=== PATIENT | female | born 1995 | race Caucasian/White ===

== ENCOUNTER 2021-03-26 21:03 | Emergency (ER) | payer MEDICAID, SELFPAY ==
--- NOTE | ~2021-03-26 | XR_ITS ---
EXAMINATION: XR RIBS, LEFT CLINICAL INFORMATION: Pain. COMPARISON: None. TECHNIQUE: 3 views of the left ribs were obtained. FINDINGS: Lungs are clear. No consolidation, pneumothorax, or pleural effusion. The cardiomediastinal silhouette and pulmonary vasculature are normal. Osseous structures are unremarkable. Ribs are intact. No fractures are identified. XR/XR ribs LT min 3V w CXR1V IMPRESSION: Unremarkable examination.
--- NOTE | ~2021-03-26 | CT_ITS ---
EXAMINATION: CT ANGIOGRAM OF THE CHEST WITH AND WITHOUT CONTRAST (CT PULMONARY ANGIOGRAM FOR PE) CT ABDOMEN AND PELVIS WITH CONTRAST CLINICAL INFORMATION: Pleuritic chest pain. L CVAT/LUQ abominal pain COMPARISON: Radiographs from 03/26/2021. TECHNIQUE: Prior to contrast administration, noncontrast localization images were obtained. Subsequently, multidetector volumetric imaging was performed from the thoracic inlet to the pubic symphysis following the administration of 85 mL Omnipaque 350 intravenous contrast. This was followed by multidetector acquisition of the abdomen and pelvis. No contrast reaction reported Sagittal, coronal, and MIP oblique sagittal reformatted images were obtained on the CT workstation, uploaded to PACS, and reviewed. This CT examination was performed using dose optimization techniques as appropriate, variously including the following: *Automated exposure control *Adjustment of mA and/or kV according to patient size (this includes techniques or standardized protocols for targeted exams where dose is matched to indication/reason for exam; i.e. extremities or head) *Use of iterative reconstruction technique Total exam dose-length product 730 mGy-cm FINDINGS: QUALITY OF STUDY/CONTRAST BOLUS: Satisfactory. PULMONARY ARTERIES: No central or segmental pulmonary emboli. THORACIC AORTA: No aneurysm or dissection. LUNG: No focal consolidation, nodules or masses. The central airways are patent. PLEURA: No pleural effusion or pneumothorax. MEDIASTINUM: Normal heart size. No pericardial effusion. No hilar or mediastinal lymphadenopathy. Residual thymic tissue noted in the superior mediastinum. No evidence of septal bowing or right heart strain. CHEST WALL/AXILLA: No axillary or internal mammary lymphadenopathy. LIVER, GALLBLADDER, AND BILIARY TREE: The liver is normal in size, shape, and attenuation. No focal hepatic lesion or biliary ductal dilatation is present. The gallbladder is unremarkable with no evidence of radiopaque gallstones, gallbladder wall thickening, or obvious pericholecystic inflammatory changes. PANCREAS: Unremarkable. SPLEEN: Unremarkable. ADRENAL GLANDS: Unremarkable. KIDNEYS AND URETERS: The kidneys are normal in size and shape. There is some heterogeneity of the enhancement at the upper pole of the left kidney. There is a duplicated left collecting system. Hypoattenuating lesion at the upper pole of the left kidney measures 1.6 cm. This measures higher than simple fluid attenuation. No hydronephrosis, hydroureter, or calculi seen. No perinephric stranding. BLADDER: Unremarkable. GASTROINTESTINAL TRACT: The small and large bowel are unremarkable. The appendix is unremarkable. ABDOMINAL WALL: No significant hernia is appreciated. LYMPH NODES: Normal. VASCULAR: Unremarkable. PELVIC VISCERA: The uterus and adnexa are unremarkable. OSSEOUS STRUCTURES: No acute or suspicious osseous abnormality. CT/CT angio chest PE protocol IMPRESSION: 1. No pulmonary embolism or other acute intrathoracic abnormality. 2. Heterogeneity of the enhancement at the upper pole of the left kidney. Consider pyelonephritis. 3. Duplicated left renal collecting system. No hydronephrosis or nephrolithiasis seen. 4. Hypoattenuating lesion at the upper pole of the left kidney measuring higher than simple fluid attenuation. Suggest evaluation with nonemergent renal ultrasound. VTE: negative
[2021-03-26 21:22] VITALS: BP 130/57; PULSE 93; RESP 18; TEMP 37.2; O2SAT 100; BMI 26.5
--- NOTE | 2021-03-27 00:49 | ECG_ITS ---
Test Reason : RUQ PAIN Blood Pressure : / mmHG Vent. Rate : 060 BPM Atrial Rate : 060 BPM P-R Int : 172 ms QRS Dur : 080 ms QT Int : 406 ms P-R-T Axes : -01 072 044 degrees QTc Int : 406 ms Normal sinus rhythm Normal ECG No previous ECGs available Referred By: Karen Montoya Electronically Signed By:MARLENY MOFFETT MD
--- NOTE | 2021-03-27 01:03 | ED_ITS ---
HPI - General Adult General Chief complaint: General Medical <MIKEY Kim Last Filed: 03/27/21 02:26> Stated complaint: Rib pain <MIKEY Kim Last Filed: 03/27/21 02:26> Time Seen by Provider: 03/27/21 00:35 <MIKEY Kim Last Filed: 03/27/21 02:26> Source: patient <MIKEY Kim Last Filed: 03/27/21 02:26> Mode of arrival: ambulatory <MIKEY Kim Last Filed: 03/27/21 02:26> History of Present Illness HPI narrative: 26-year-old female with no significant past medical history presenting to the ED complaining of left-sided rib/flank pain x1 week. Admits pain is intermittent, worse with movement and deep inspiration. Also reports intermittent left knee pain over the past week. Reports mild SOB secondary to pain. Denies fever, chills, nausea/vomiting, diarrhea/constipation, dysuria/hematuria, history of blood clots, recent travel, calf pain/ LE edema, oral OCPs <MIKEY Kim Last Filed: 03/27/21 02:26> Onset (ago): day(s) <MIKEY Kim Last Filed: 03/27/21 02:26> Severity: moderate <MIKEY Kim Last Filed: 03/27/21 02:26> Related Data Home medications: Previous Rx's Medication Instructions Recorded cephalexin 500 mg capsule 500 mg PO QID 10 Days #40 cap 03/27/21 <MIKEY Kim Last Filed: 03/27/21 02:26> Allergies/adverse reactions: Allergies Allergy/AdvReac Type Severity Reaction Status Date / Time No Known Allergies Allergy Unverified 12/28/19 19:38 [No Known Allergies*] <MIKEY Kim Last Filed: 03/27/21 02:26> Review of Systems Review of Systems: Constitutional: No Fever, No Chills, No Fatigue, No Malaise ENT/Mouth: No Ear Pain, No Nasal Congestion, No sore throat, No Rhinorrhea, No Swallowing Difficulty Eyes: No Eye Pain, No Swelling, No Redness, No Vision Changes Cardiovascular: + L chest wall pain, + SOB, No Dyspnea on Exertion, No Orthopne a, No Edema, No Palpitations Respiratory: No Cough, No Sputum, No Dyspnea Gastrointestinal: No Nausea, No Vomiting, No Diarrhea, No Constipation, No Abdominal pain Genitourinary: No Dysuria, No Urinary Frequency, No Hematuria, No Urinary Incontinence, No Urgency, + Flank Pain, No Urinary Flow Changes, No Hesitancy Musculoskeletal: + joint pain, No Myalgias, No Joint Swelling Skin: No Skin Lesions, No rash Neuro: No Weakness, No Headache <MIKEY Kim - Last Filed: 03/27/21 02:26> Yes all other systems are reviewed and are negative <MIKEY Kim - Last Filed: 03/27/21 02:26> [facility] Past Medical History Attestation statement: The following information was validated with the patient. <MIKEY Kim - Last Filed: 03/27/21 02:26> Social History Social History: Social History Advance Directives: No Advance Directives Information Provided: No <MIKEY Kim - Last Filed: 03/27/21 02:26> Physical Exam 2 Vital Signs: Vital Signs: Last Vital Signs Temp 98.9 F 03/26/21 21:22 Pulse 93 03/26/21 21:22 Resp 18 03/26/21 21:22 BP 130/57 L 03/26/21 21:22 Pulse Ox 100 03/26/21 21:22 BMI result Body Mass Index 26.5 <MIKEY Kim - Last Filed: 03/27/21 02:26> Vital Signs: Last Vital Signs Temp 98.9 F 03/26/21 21:22 Pulse 93 03/26/21 21:22 Resp 18 03/26/21 21:22 BP 130/57 L 03/26/21 21:22 Pulse Ox 100 03/26/21 21:22 BMI result Body Mass Index 26.5 <Luke Dominguez MD - Last Filed: 03/27/21 03:14> Const: Other: tearful in pain <MIKEY Kim Last Filed: 03/27/21 02:26> General: cooperative, healthy appearing and no acute distress <MIKEY iKm - Last Filed: 03/27/21 02:26> Orientation/consciousness: patient oriented x3 <Karen Montoya [facility] Last File d: 03/27/21 02:26> Limitations: no limitations <Karen Montoya [facility] Last Filed: 03/27/21 02:26> HENMT: Head: Yes normal to inspection <Karen Montoya [facility] Last Filed: 1 05/28/20 02:26> Ears: hearing grossly normal bilaterally <Karen Montoya [facility] - Last Filed: 03/27/21 02:26> General nose exam: Normal external nose present <Karen Montoya [facility] - Last Filed: 03/27/21 02:26> Face and sinus: Yes normal facial exam <Karen Montoya [facility] - Last Filed: 03/27/21 02:26> Eyes: General: appearance normal, both eyes and all related structures <Juan C Montoya [facility] - Last Filed: 03/27/21 02:26> EOM: EOMs intact bilaterally <Karen Montoya [facility] - Last Filed: 03/27/21 02:26> Neck: Neck: Yes normal visual inspection and Yes no meningeal signs <Karen Montoya [facility] - Last Filed: 03/27/21 02:26> Chest: Chest palpation & inspection: no crepitus and no tenderness <Karen Montoya [facility] - Last Filed: 03/27/21 02:26> Resp: Other: Shallow breaths secondary to pain <Karen Montoya [facility] - Last Filed: 03/27/21 02:26> Effort & Inspection: normal respiratory effort <Karen Montoya [facility] Last Filed: 03/27/21 02:26> Auscultation: clear to auscultation bilaterally, no rales, no rhonchi and no wheezes <Karen Montoya [facility] Last Filed: 03/27/21 02:26> Cardio: Rate: regular rate <Karen Montoya [facility] - Last Filed: 03/27/21 02:26> Heart sounds: S1 normal heart sound present and S2 normal heart sound present <Karen Montoya [facility] - Last Filed: 03/27/21 02:26> GI: Inspection: Yes normal to inspection <MIKEY Kim - Last Filed: 03/27/21 02:26> Palpation (GI): Soft to palpation, Tenderness to palpation present (GI) in the LUQ, no guarding and not rigid <KarenMIKEY Mata - Last Filed: 03/27/21 02:26> : General: Yes CVA tenderness on the left <MIKEY Kim - Last Filed: 03/27/21 02:26> Back/Spine/Pelvis: Back: CVA tenderness <Karen Montoya [facility] - Last Filed: 03/27/21 02:26> Skin: Rashes: no rashes <Karen Montoya [facility] - Last Filed: 03/27/21 02:26> Wounds: no wounds <Karen Montoya [facility] - Last Filed: 03/27/21 02:26> Neuro: General: patient oriented x3 and no meningeal signs <MIKEY Kim - Last Filed: 03/27/21 02:26> Gait exam (Neuro): Normal gait present <MIKEY Kim - Last Filed: 03/27/21 02:26> Extrem: General: Yes normal to inspection, Yes no pedal edema and Yes no calf tenderness <MIKEY Kim - Last Filed: 03/27/21 02:26> Course Course Course Narrative: 0045-- XR ribs LT min 3V w CXR1V IMPRESSION: Unremarkable examination. -no leukocytosis. H&H stable. D-dimer 247 > will obtain CTA to rule out PE -0142--UA with + leuk esterase and wbc's, contaminated with +epithelials, however secondary to flank pain infection now suspected. Still low concern for severe sepsis > IV Ceftriaxone ordered, Lactic and Blood Cx -0200--ED care transferred to Dr. Dominguez pending Lactic, CTA to rule out PE and CT abdomen/pelvis, dispo per results <MIKEY Kim - Last Filed: 03/27/21 02:26> Reevaluation(s) Reevaluation #1: CT most consistent with pyelonephritis will dc on keflex <Luke Dominguez MD - Last Filed: 03/27/21 03:14> Time: 03:09 <Luke Dominguez MD - Last Filed: 03/27/21 03:14> Medical Decision Making MDM Narrative Medical decision making narrative: 26-year-old female with no significant past medical history presenting to the ED complaining of left-sided rib/flank pain x1 week. Admits pain is intermittent, worse with movement and deep inspiration. Also reports intermittent On exam vital signs stable, NAD/nontoxic, lungs CTA, abdomen soft with LUQ/left CVAT. Concern for PE vs ?pyelo vs costochondritis/occult rib fracture vs pneumonia. Lower concern for cholecystitis/cholelithiasis, pancreatitis, appendicitis. Symptoms atypical for ACS Low concern for severe sepsis, HR elevated likely from pain Plan: EKG, labs, D-dimer, rib x-ray, CT AP, +/- CT chest to rule out PE <MIKEY Kim - Last Filed: 03/27/21 02:26> Medical Records Medical records reviewed: Yes I reviewed the patient's medical records. <MIKEY Kim - Last Filed: 03/27/21 02:26> Lab Data Lab results reviewed: Yes I reviewed the patient's lab results. <MIKEY Kim - Last Filed: 03/27/21 02:26> Result diagrams: : 03/27/21 01:11 03/27/21 01:11 <MIKEY Kim - Last Filed: 03/27/21 02:26> Labs: Lab Results 03/27/21 03/27/21 03/27/21 Range/Units 01:06 01:11 01:11 WBC 6.3 (4.8-10.8) X10*3/uL RBC 3.95 L (4.20-5.50) X10*6/uL Hgb 12.0 (12.0-16.0) g/dl Hct 35.4 L (37.0-47.0) % MCV 89.6 (80.0-98.0) fL MCH 30.4 (27.0-33.0) pg MCHC 33.9 (31.0-35.0) g/dl RDW 11.3 (11.0-16.0) % Plt Count 203 (160-400) X10*3/uL MPV 11.0 (9.4-12.3) fL Immature Gran % (Auto) 0.3 (0.0-0.4) % Neut % (Auto) 62.9 (45-73) % Lymph % (Auto) 23.0 (20-40) % Maries % (Auto) 11.3 H (2-11) % Eos % (Auto) 2.2 (0-4) % Baso % (Auto) 0.3 (0-2) % Lymph # (Auto) 1.4 (1.2-4.9) X10*3/uL Maries # (Auto) 0.7 (0.1-1.2) X10*3/uL Eos # (Auto) 0.1 (0.0-0.4) X10*3/uL Baso # (Auto) 0.0 (0.0-0.2) X10*3/uL Abs Immat Gran (auto) 0.02 (0.00-0.03) X10*3/uL Absolute Neuts (auto) 3.9 (2.0-8.3) x10*3/uL Absolute Nucleated RBC 0.000 (0.0-0.012) X10*3/uL Nucleated RBC % (auto) 0.0 (0.0-0.2) /100WBC D-Dimer High Sensitivty 247 NG/ML Sodium (135-145) mmol/L Potassium (3.3-5.1) mmol/L Chloride (96-108) mmol/L Carbon Dioxide (22-29) mmol/L Anion Gap (12-20) BUN (9-16) mg/dL Creatinine (0.5-1.4) mg/dL Estim Creat Clear Calc Estimated GFR Random Glucose (60-115) mg/dL Calcium (8.4-10.2) mg/dL Magnesium (1.6-2.6) mg/dL Total Bilirubin (0.0-1.0) mg/dL Direct Bilirubin (0.0-0.5) mg/dL AST (5-31) U/L ALT (0-31) U/L Alkaline Phosphatase (39-117) U/L B-Natriuretic Peptide (<100) pg/mL Total Protein (6.5-8.0) g/dL Albumin (3.5-5.0) g/dL Lipase (8-78) U/L Urine Color Urine Appearance Urine pH (5.0-8.0) Ur Specific [place] (1.005-1.025) Urine Protein (NEG-TRACE) MG/DL Urine Glucose (UA) (NEG) MG/DL Urine Ketones (NEG) MG/DL Urine Blood (NEG) Urine Nitrite (NEG) Ur Leukocyte Esterase (NEG) Urine RBC (0) /HPF Urine WBC (0-4) /HPF Ur Squamous Epith Cells /LPF Urine Bacteria /LPF Urine Test (NEGATIVE) COVID-19 (CINDY) Negative (Negative) COVID-19 Clin Com See Note 03/27/21 03/27/21 03/27/21 Range/Units 01:11 01:11 01:11 WBC (4.8-10.8) X10*3/uL RBC (4.20-5.50) X10*6/uL Hgb (12.0-16.0) g/dl Hct (37.0-47.0) % MCV (80.0-98.0) fL MCH (27.0-33.0) pg MCHC (31.0-35.0) g/dl RDW (11.0-16.0) % Plt Count (160-400) X10*3/uL MPV (9.4-12.3) fL Immature Gran % (Auto) (0.0-0.4) % Neut % (Auto) (45-73) % Lymph % (Auto) (20-40) % Maries % (Auto) (2-11) % Eos % (Auto) (0-4) % Baso % (Auto) (0-2) % Lymph # (Auto) (1.2-4.9) X10*3/uL Maries # (Auto) (0.1-1.2) X10*3/uL Eos # (Auto) (0.0-0.4) X10*3/uL Baso # (Auto) (0.0-0.2) X10*3/uL Abs Immat Gran (auto) (0.00-0.03) X10*3/uL Absolute Neuts (auto) (2.0-8.3) x10*3/uL Absolute Nucleated RBC (0.0-0.012) X10*3/uL Nucleated RBC % (auto) (0.0-0.2) /100WBC D-Dimer High Sensitivty NG/ML Sodium 138 (135-145) mmol/L Potassium 3.5 (3.3-5.1) mmol/L Chloride 103 (96-108) mmol/L Carbon Dioxide 25 (22-29) mmol/L Anion Gap 14 (12-20) BUN 13 (9-16) mg/dL Creatinine 0.85 (0.5-1.4) mg/dL Estim Creat Clear Calc 94.4 Estimated GFR > 60 Random Glucose 100 (60-115) mg/dL Calcium 9.1 (8.4-10.2) mg/dL Magnesium 1.9 (1.6-2.6) mg/dL Total Bilirubin 0.5 (0.0-1.0) mg/dL Direct Bilirubin 0.3 (0.0-0.5) mg/dL AST 18 (5-31) U/L ALT 18 (0-31) U/L Alkaline Phosphatase 63 (39-117) U/L B-Natriuretic Peptide < 10 (<100) pg/mL Total Protein 7.2 (6.5-8.0) g/dL Albumin 4.3 (3.5-5.0) g/dL Lipase 17 (8-78) U/L Urine Color STRAW Urine Appearance HAZY Urine pH 6.5 (5.0-8.0) Ur Specific [place] <= 1.005 (1.005-1.025) Urine Protein NEG (NEG-TRACE) MG/DL Urine Glucose (UA) NEG (NEG) MG/DL Urine Ketones NEG (NEG) MG/DL Urine Blood NEG (NEG) Urine Nitrite NEG (NEG) Ur Leukocyte Esterase 2+ H (NEG) Urine RBC 0-2 (0) /HPF Urine WBC 15-29 H (0-4) /HPF Ur Squamous Epith Cells 4+ /LPF Urine Bacteria 2+ /LPF Urine Test (NEGATIVE) COVID-19 (CINDY) (Negative) COVID-19 Clin Com 03/27/21 Range/Units 01:11 WBC (4.8-10.8) X10*3/uL RBC (4.20-5.50) X10*6/uL Hgb (12.0-16.0) g/dl Hct (37.0-47.0) % MCV (80.0-98.0) fL MCH (27.0-33.0) pg MCHC (31.0-35.0) g/dl RDW (11.0-16.0) % Plt Count (160-400) X10*3/uL MPV (9.4-12.3) fL Immature Gran % (Auto) (0.0-0.4) % Neut % (Auto) (45-73) % Lymph % (Auto) (20-40) % Maries % (Auto) (2-11) % Eos % (Auto) (0-4) % Baso % (Auto) (0-2) % Lymph # (Auto) (1.2-4.9) X10*3/uL Maries # (Auto) (0.1-1.2) X10*3/uL Eos # (Auto) (0.0-0.4) X10*3/uL Baso # (Auto) (0.0-0.2) X10*3/uL Abs Immat Gran (auto) (0.00-0.03) X10*3/uL Absolute Neuts (auto) (2.0-8.3) x10*3/uL Absolute Nucleated RBC (0.0-0.012) X10*3/uL Nucleated RBC % (auto) (0.0-0.2) /100WBC D-Dimer High Sensitivty NG/ML Sodium (135-145) mmol/L Potassium (3.3-5.1) mmol/L Chloride (96-108) mmol/L Carbon Dioxide (22-29) mmol/L Anion Gap (12-20) BUN (9-16) mg/dL Creatinine (0.5-1.4) mg/dL Estim Creat Clear Calc Estimated GFR Random Glucose (60-115) mg/dL Calcium (8.4-10.2) mg/dL Magnesium (1.6-2.6) mg/dL Total Bilirubin (0.0-1.0) mg/dL Direct Bilirubin (0.0-0.5) mg/dL AST (5-31) U/L ALT (0-31) U/L Alkaline Phosphatase (39-117) U/L B-Natriuretic Peptide (<100) pg/mL Total Protein (6.5-8.0) g/dL Albumin (3.5-5.0) g/dL Lipase (8-78) U/L Urine Color Urine Appearance Urine pH (5.0-8.0) Ur Specific [place] (1.005-1.025) Urine Protein (NEG-TRACE) MG/DL Urine Glucose (UA) (NEG) MG/DL Urine Ketones (NEG) MG/DL Urine Blood (NEG) Urine Nitrite (NEG) Ur Leukocyte Esterase (NEG) Urine RBC (0) /HPF Urine WBC (0-4) /HPF Ur Squamous Epith Cells /LPF Urine Bacteria /LPF Urine Test NEGATIVE (NEGATIVE) COVID-19 (CINDY) (Negative) COVID-19 Clin Com <MIKEY Kim - Last Filed: 03/27/21 02:26> Lab Results 03/27/21 03/27/21 03/27/21 Range/Units 01:06 01:11 01:11 WBC 6.3 (4.8-10.8) X10*3/uL RBC 3.95 L (4.20-5.50) X10*6/uL Hgb 12.0 (12.0-16.0) g/dl Hct 35.4 L (37.0-47.0) % MCV 89.6 (80.0-98.0) fL MCH 30.4 (27.0-33.0) pg MCHC 33.9 (31.0-35.0) g/dl RDW 11.3 (11.0-16.0) % Plt Count 203 (160-400) X10*3/uL MPV 11.0 (9.4-12.3) fL Immature Gran % (Auto) 0.3 (0.0-0.4) % Neut % (Auto) 62.9 (45-73) % Lymph % (Auto) 23.0 (20-40) % Maries % (Auto) 11.3 H (2-11) % Eos % (Auto) 2.2 (0-4) % Baso % (Auto) 0.3 (0-2) % Lymph # (Auto) 1.4 (1.2-4.9) X10*3/uL Maries # (Auto) 0.7 (0.1-1.2) X10*3/uL Eos # (Auto) 0.1 (0.0-0.4) X10*3/uL Baso # (Auto) 0.0 (0.0-0.2) X10*3/uL Abs Immat Gran (auto) 0.02 (0.00-0.03) X10*3/uL Absolute Neuts (auto) 3.9 (2.0-8.3) x10*3/uL Absolute Nucleated RBC 0.000 (0.0-0.012) X10*3/uL Nucleated RBC % (auto) 0.0 (0.0-0.2) /100WBC D-Dimer High Sensitivty 247 NG/ML Sodium (135-145) mmol/L Potassium (3.3-5.1) mmol/L Chloride (96-108) mmol/L Carbon Dioxide (22-29) mmol/L Anion Gap (12-20) BUN (9-16) mg/dL Creatinine (0.5-1.4) mg/dL Estim Creat Clear Calc Estimated GFR Random Glucose (60-115) mg/dL Calcium (8.4-10.2) mg/dL Magnesium (1.6-2.6) mg/dL Total Bilirubin (0.0-1.0) mg/dL Direct Bilirubin (0.0-0.5) mg/dL AST (5-31) U/L ALT (0-31) U/L Alkaline Phosphatase (39-117) U/L B-Natriuretic Peptide (<100) pg/mL Total Protein (6.5-8.0) g/dL Albumin (3.5-5.0) g/dL Lipase (8-78) U/L Urine Color Urine Appearance Urine pH (5.0-8.0) Ur Specific [place] (1.005-1.025) Urine Protein (NEG-TRACE) MG/DL Urine Glucose (UA) (NEG) MG/DL Urine Ketones (NEG) MG/DL Urine Blood (NEG) Urine Nitrite (NEG) Ur Leukocyte Esterase (NEG) Urine RBC (0) /HPF Urine WBC (0-4) /HPF Ur Squamous Epith Cells /LPF Urine Bacteria /LPF Urine Test (NEGATIVE) COVID-19 (CINDY) Negative (Negative) COVID-19 Clin Com See Note 03/27/21 03/27/21 03/27/21 Range/Units 01:11 01:11 01:11 WBC (4.8-10.8) X10*3/uL RBC (4.20-5.50) X10*6/uL Hgb (12.0-16.0) g/dl Hct (37.0-47.0) % MCV (80.0-98.0) fL MCH (27.0-33.0) pg MCHC (31.0-35.0) g/dl RDW (11.0-16.0) % Plt Count (160-400) X10*3/uL MPV (9.4-12.3) fL Immature Gran % (Auto) (0.0-0.4) % Neut % (Auto) (45-73) % Lymph % (Auto) (20-40) % Maries % (Auto) (2-11) % Eos % (Auto) (0-4) % Baso % (Auto) (0-2) % Lymph # (Auto) (1.2-4.9) X10*3/uL Maries # (Auto) (0.1-1.2) X10*3/uL Eos # (Auto) (0.0-0.4) X10*3/uL Baso # (Auto) (0.0-0.2) X10*3/uL Abs Immat Gran (auto) (0.00-0.03) X10*3/uL Absolute Neuts (auto) (2.0-8.3) x10*3/uL Absolute Nucleated RBC (0.0-0.012) X10*3/uL Nucleated RBC % (auto) (0.0-0.2) /100WBC D-Dimer High Sensitivty NG/ML Sodium 138 (135-145) mmol/L Potassium 3.5 (3.3-5.1) mmol/L Chloride 103 (96-108) mmol/L Carbon Dioxide 25 (22-29) mmol/L Anion Gap 14 (12-20) BUN 13 (9-16) mg/dL Creatinine 0.85 (0.5-1.4) mg/dL Estim Creat Clear Calc 94.4 Estimated GFR > 60 Random Glucose 100 (60-115) mg/dL Calcium 9.1 (8.4-10.2) mg/dL Magnesium 1.9 (1.6-2.6) mg/dL Total Bilirubin 0.5 (0.0-1.0) mg/dL Direct Bilirubin 0.3 (0.0-0.5) mg/dL AST 18 (5-31) U/L ALT 18 (0-31) U/L Alkaline Phosphatase 63 (39-117) U/L B-Natriuretic Peptide < 10 (<100) pg/mL Total Protein 7.2 (6.5-8.0) g/dL Albumin 4.3 (3.5-5.0) g/dL Lipase 17 (8-78) U/L Urine Color STRAW Urine Appearance HAZY Urine pH 6.5 (5.0-8.0) Ur Specific [place] <= 1.005 (1.005-1.025) Urine Protein NEG (NEG-TRACE) MG/DL Urine Glucose (UA) NEG (NEG) MG/DL Urine Ketones NEG (NEG) MG/DL Urine Blood NEG (NEG) Urine Nitrite NEG (NEG) Ur Leukocyte Esterase 2+ H (NEG) Urine RBC 0-2 (0) /HPF Urine WBC 15-29 H (0-4) /HPF Ur Squamous Epith Cells 4+ /LPF Urine Bacteria 2+ /LPF Urine Test (NEGATIVE) COVID-19 (CINDY) (Negative) COVID-19 Clin Com 03/27/21 Range/Units 01:11 WBC (4.8-10.8) X10*3/uL RBC (4.20-5.50) X10*6/uL Hgb (12.0-16.0) g/dl Hct (37.0-47.0) % MCV (80.0-98.0) fL MCH (27.0-33.0) pg MCHC (31.0-35.0) g/dl RDW (11.0-16.0) % Plt Count (160-400) X10*3/uL MPV (9.4-12.3) fL Immature Gran % (Auto) (0.0-0.4) % Neut % (Auto) (45-73) % Lymph % (Auto) (20-40) % [place] % (Auto) (2-11) % Eos % (Auto) (0-4) % Baso % (Auto) (0-2) % Lymph # (Auto) (1.2-4.9) X10*3/uL [place] # (Auto) (0.1-1.2) X10*3/uL Eos # (Auto) (0.0-0.4) X10*3/uL Baso # (Auto) (0.0-0.2) X10*3/uL Abs Immat Gran (auto) (0.00-0.03) X10*3/uL Absolute Neuts (auto) (2.0-8.3) x10*3/uL Absolute Nucleated RBC (0.0-0.012) X10*3/uL Nucleated RBC % (auto) (0.0-0.2) /100WBC D-Dimer High Sensitivty NG/ML Sodium (135-145) mmol/L Potassium (3.3-5.1) mmol/L Chloride (96-108) mmol/L Carbon Dioxide (22-29) mmol/L Anion Gap (12-20) BUN (9-16) mg/dL Creatinine (0.5-1.4) mg/dL Estim Creat Clear Calc Estimated GFR Random Glucose (60-115) mg/dL Calcium (8.4-10.2) mg/dL Magnesium (1.6-2.6) mg/dL Total Bilirubin (0.0-1.0) mg/dL Direct Bilirubin (0.0-0.5) mg/dL AST (5-31) U/L ALT (0-31) U/L Alkaline Phosphatase (39-117) U/L B-Natriuretic Peptide (<100) pg/mL Total Protein (6.5-8.0) g/dL Albumin (3.5-5.0) g/dL Lipase (8-78) U/L Urine Color Urine Appearance Urine pH (5.0-8.0) Ur Specific [place] (1.005-1.025) Urine Protein (NEG-TRACE) MG/DL Urine Glucose (UA) (NEG) MG/DL Urine Ketones (NEG) MG/DL Urine Blood (NEG) Urine Nitrite (NEG) Ur Leukocyte Esterase (NEG) Urine RBC (0) /HPF Urine WBC (0-4) /HPF Ur Squamous Epith Cells /LPF Urine Bacteria /LPF Urine Test NEGATIVE (NEGATIVE) COVID-19 (CINDY) (Negative) COVID-19 Clin Com <Luke Dominguez MD - Last Filed: 03/27/21 03:14> Imaging Data CT chest and abdomen: Radiologist's impression: IMPRESSION: ? 1. No pulmonary embolism or other acute intrathoracic abnormality. 2. Heterogeneity of the enhancement at the upper pole of the left kidney. Consider pyelonephritis. 3. Duplicated left renal collecting system. No hydronephrosis or nephrolithiasis seen. 4. Hypoattenuating lesion at the upper pole of the left kidney measuring higher than simple fluid attenuation. Suggest evaluation with nonemergent renal ultrasound. <Luke Dominguez MD - Last Filed: 03/27/21 03:14> ECG Data Attestation: I personally reviewed and interpreted this ECG as follows: <MIKEY Kim - Last Filed: 03/27/21 02:26> Interpretation: A nodule measuring to 60. Pr interval 172. QTC 406. Inverted T-wave in V1. Nonspecific ST changes in V2. No STEMI <MIKEY Kim - Last Filed: 03/27/21 02:26> Discharge Plan Discharge Clinical Impression: Pyelonephritis <MIKEY Kim - Last Filed: 03/27/21 02:26> Patient Disposition: Home, Self-Care <MIKEY Kim - Last Filed: 03/27/21 02:26> Instructions: Kidney Infection (ED) <MIKEY Kim - Last Filed: 03/27/21 02:26> Prescriptions: New cephalexin 500 mg capsule 500 mg PO QID 10 Days Qty: 40 RF: 0 <MIKEY Kim - Last Filed: 03/27/21 02:26> Referrals: Physician,Unknown J [Primary Care Provider] - 2 days <MIKEY Kim Last Filed: 03/27/21 02:26>
[2021-03-27] MEDS: 0.9 % Sodium Chloride 1,000 ML 999 ML IVCONT (01:12)
[2021-03-27] MEDS: Ketorolac Tromethamine 30 MG/ML VIAL 15 MG IVPUSH (01:13)
[2021-03-27 01:21] LABS: MANUAL DIFF FLAG NO
[2021-03-27 01:23] LABS: Basophils Percent Auto 0.3 % (0-2); Eosinophils Absolute Auto 0.1 X10*3/uL (0.0-0.4); Eosinophils Percent Auto 2.2 % (0-4); Hematocrit 35.4 % (37.0-47.0); Imm Gran Abs Auto 0.02 X10*3/uL (0.00-0.03); Imm Gran Pct Auto 0.3 % (0.0-0.4); Lymphocytes Absolute Auto 1.4 X10*3/uL (1.2-4.9); Mean Corpuscular HGB Conc 33.9 g/dl (31.0-35.0); Mean Corpuscular Hemoglobin 30.4 pg (27.0-33.0); Mean Corpuscular Volume 89.6 fL (80.0-98.0); Monocytes Absolute Auto 0.7 X10*3/uL (0.1-1.2); Monocytes Percent Auto 11.3 % (2-11); Neutrophils Absolute Auto 3.9 x10*3/uL (2.0-8.3); Neutrophils Percent Auto 62.9 % (45-73); Platelet Count 203 X10*3/uL (160-400); Red Blood Count 3.95 X10*6/uL (4.20-5.50); Red Cell Distribution Width 11.3 % (11.0-16.0); White Blood Count 6.3 X10*3/uL (4.8-10.8)
[2021-03-27 01:27] LABS: Appearance Urine HAZY; Color Urine STRAW; Glucose Urine UA NEG (NEG); Leukocyte Esterase Urine 2+ (NEG); Nitrite Urine NEG (NEG); PH 6.5 (5.0-8.0); Specific Gravity - Urine <= 1.005 (1.005-1.025); UACC Culture Trigger YES; Urine Blood NEG (NEG); Urine Ketones NEG (NEG); Urine Protein NEG (NEG-TRACE)
[2021-03-27 01:28] LABS: UPreg QC Valid YES; Urine Pregnancy NEGATIVE (NEGATIVE)
[2021-03-27 01:32] LABS: Bacteria Urine 2+ /LPF; RBC Urine 0-2 /HPF (0); Squamous Epithelial Cell Urine 4+ /LPF
[2021-03-27 01:35] LABS: COVID-19 Test Negative (Negative); IDNOW Serial# 9DD0AD1C
[2021-03-27 01:38] LABS: D Dimer High Sensitivity 247 NG/ML
[2021-03-27 01:41] LABS: Alanine Aminotransferase 18 U/L (0-31); Albumin Level 4.3 g/dL (3.5-5.0); Alkaline Phosphatase 63 U/L (39-117); Anion Gap 14 (12-20); Aspartate Amino Transferase 18 U/L (5-31); Bilirubin Direct 0.3 mg/dL (0.0-0.5); Bilirubin Total 0.5 mg/dL (0.0-1.0); Blood Urea Nitrogen 13 mg/dL (9-16); Calcium 9.1 mg/dL (8.4-10.2); Carbon Dioxide 25 mmol/L (22-29); Chloride 103 mmol/L (96-108); Creatinine Clr Calc Pharmacy 94.4; Estimated Glomerular Filt Rate > 60; Glucose Random 100 mg/dL (60-115); Lipase 17 U/L (8-78); Magnesium 1.9 mg/dL (1.6-2.6); Potassium 3.5 mmol/L (3.3-5.1); Sodium 138 mmol/L (135-145); Total Protein 7.2 g/dL (6.5-8.0)
[2021-03-27 01:43] LABS: B Type Natriuretic Peptide < 10 pg/mL (<100)
[2021-03-27] MEDS: iohexoL 350 MG/ML 100 ML INFUS..BTL IV (02:36)
[2021-03-27] MEDS: cefTRIAXone sodium 1 GM in 0.9 % Sodium Chloride 50 ML IV (03:40)
[2021-03-27 03:41] VITALS: BP 99/60; PULSE 66; RESP 18; TEMP 36.6; O2SAT 99
[2021-03-27 03:47] LABS: Lactic Acid 0.6 mmol/L (0.5-2.0)
== END 2021-03-27 04:05 | disposition home or self-care (01) ==
PROVIDERS: Physician Assistant; Emergency Provider Emergency Medicine
DX: N12 Tubulo-interstitial nephritis, not specified as acute or chronic (principal); R06.02 Shortness of breath; Z20.822 Contact with and (suspected) exposure to COVID-19
CPT/HCPCS: 36415; 71101; 71275; 74177; 80048; 80076; 81001; 81025; 83605; 83690; 83735; 83880; 85025; 85379; 87040; 87086; 87088; 87186; 87635; 93005; 96361; 96374; 96375; 99284; J0696; J1885; Q9967